=== PATIENT | male | born 1945 | race African-American/Black ===

== ENCOUNTER 2017-04-07 03:51 | Inpatient (IN) | payer MEDICARE, MEDICAID ==
[2017-04-07] VITALS (8 sets, daily range): BP systolic 111–137; BP diastolic 55–78
[~2017-04-07] VITALS: Ht 165.1 cm; Wt 54.4 kg
[~2017-04-07 03:51] MED LIST: ACETAMINOPHEN500 M3 PO; ACETAMINOPHEN500 MG PO; ADVAIR 250/5028 PUFF IN; ALBUTEROL2.5 MG/NEB INH; ARICEPT10 MG PO; ARICEPT23 MG PO; ASPIR-LOW81 MG PO; ATIVAN GENERIC0.5 MG PO; CELEBREX200 MG PO; CELEXA20 MG PO; DEPAKOTE 250MG250 MG PO; DEPAKOTE250 MG PO; DILTIAZEM HCL120 M1 PO; DONEPEZIL 10MG10 MG PO; DYAZIDE CAP (M1 EACH PO; LEVAQUIN 750 M750 MG PO; LISINOPRIL20 MG PO; LOVAZA1 GM PO; MAXZIDE 25 MG-31 TA1 PO; MAXZIDE 25 MG-31 TAB PO; METFORMIN 500M500 MG PO; MIRALAX17 GM/DOSE PO; NAMENDA10 MG PO; NUEDEXTA1 CAP PO; OXYBUTYNIN5 MG PO; PREDNICOT20 MG PO; PRILOSEC20 MG PO; PROAIR HFA0.09 MG/AC IH; RANITIDINE HCL150 MG PO; RANITIDINE150 M1 PO; RISPERIDONE0.5 MG PO; ROBAFEN DM 10120 ML PO; SENNA LAXATIVE8.6 MG PO; SENOKOT TABLET1 EACH PO; SEROQUEL100 MG PO; SERTRALINE 100100 MG PO; SIMVASTATIN40 MG PO; TAMSULOSIN HYD0.4 M1 PO; TAMSULOSIN HYD0.4 MG PO; THE MEDICINE S500 M1 PO; THEO-24200 MG PO; THEO-TIME300 MG PO; THEOPHYLLINE E100 MG PO; TRAVATAN 2.5 M2.5 ML OT; TRAVATAN Z 2.52.5 ML OP; TRICOR 145 MG145 MG PO; TYLENOL ES500 M1 PO; VENTOLIN H0.09 MG/AC IH; VESICARE5 MG PO; VISTARIL25 M1 PO; ZOCOR40 MG PO; ZOLOFT100 MG PO
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
[2017-04-07 04:32] LABS: ARTERIAL PO2 69.6 MMHG (80-100); ARTERIAL TCO2 33.1 MMOL/L (23-27)
[2017-04-07 04:33] LABS: ALLEN'S TEST PATIENT UNABLE; OXYGEN 100%
[2017-04-07 04:57] LABS: URINE BILIRUBIN - DIPSTICK NEGATIVE (NEG); URINE BLOOD 1+ (NEG)
[2017-04-07 05:19] LABS: BUN 50 mg/dL (7-18)
[2017-04-07] MEDS ORDERED: REMERON15 MG PO (05:22)
[2017-04-07] MEDS ORDERED: DEPAKOTE 125MG125 MG PO (05:24)
[2017-04-07 05:26] LABS: HEMOGLOBIN 9.2 g/dL (14.1-18.0); LYMPH # 1.3 K/mm3 (0.7-4.5); LYMPH % 6.7 % (10-50)
[2017-04-07] MEDS ORDERED: PROAIR HFA0.09 MG/AC IH (05:27)
[2017-04-07] MEDS ORDERED: ULTRAM50 MG PO (05:27)
[2017-04-07 05:28] LABS: NEUTROPHILS 79 % (42-76)
[2017-04-07] MEDS ORDERED: VITAMIN C500 M1 PO (05:28)
[2017-04-07] MEDS ORDERED: ZINC SULFATE 2220 MG PO (05:28)
[2017-04-07] MEDS ORDERED: BISOPROLOL 5MG T5 MG PO ×2 (05:29→08:16)
[2017-04-07] MEDS ORDERED: CONSTULOSE10 GM/15 M PO (05:30)
[2017-04-07 05:32] LABS: GFR (ESTIMATED) 43 ML/MIN (>60)
[2017-04-07] MEDS ORDERED: VOLTAREN100 GM TP (08:20)
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
--- NOTE | 2017-04-07 09:27 | RADIOLOGY REPORT PS360 ---
CHEST-PORTABLE COMPARISON: Portable upright chest 03/16/2017 HISTORY: Shortness of breath TECHNIQUE: Portable spine chest FINDINGS: The lung villegas are fairly well-expanded however there is patient and/or respiratory motion somewhat blurring detail. There is no obvious pneumonic infiltrate. Cardiac size and vascularity are normal for supine position. There is no definite pleural fluid. IMPRESSION: Posterior negative portable spine chest
--- NOTE | 2017-04-07 09:30 | PHARMACY CLINIC NOTE ---
Patient Demographics Patient Demographics Admission date: 04/07/17 Date: 04/07/17 Time: 0929 Allergies Coded Allergies: tuberculin,PPD,multi-puncture (Mild, 02/20/16) HEIGHT- FT: 5 IN: 5.00 K.432 VTE General Information Labs: Laboratory Tests 04/07 0430 Hematology Hgb (14.1 - 18.0 g/dL) 9.2 L Hct (42.0 - 52.0 %) 34.3 L Plt Count (142 - 424 K/mm3) 543 H Disclaimer The following section includes nursing documentation that has been pulled in for pharmacy review. Patient's VTE score: 2 Patient's VTE Risk: VERY LOW RISK Clinical trial participant? No VTE prophylaxis [id number] VTE prophylaxis ordered? Yes Type of prophylaxis/treatment: CARLOS at 0929
--- NOTE | 2017-04-07 10:26 | Procedure Note ---
Bedside procedures Central Line Date of procedure: 04/07/17 Time of procedure: 1024 Central Line Placement: Risks/benefits discussed with pt/guardian? No (UNABLE.[place] OF STATE.) Anesthesia Lidocaine 1% ml- CL Placement [place], Rt Internal jugular, Prepped and draped, Triple lumen, good venous return, confirmed with xray (CXR PENDING), sutured, Sterile Dressing Applied. at 1021
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
--- NOTE | 2017-04-07 12:25 | RADIOLOGY REPORT PS360 ---
CHEST-PORTABLE COMPARISON: Portable spine chest 04/07/2017 HISTORY: Central line placement TECHNIQUE: Portable semiupright chest FINDINGS: Is a central line seen entering the right jugular vein near the junction with the subclavian vein and the tip is in the SVC above the right atrium. There are subtle ill-defined opacities in the left infrahilar region and left lower lobe likely representing a pneumonic infiltrate. There is a small left pleural effusion likely reactive. The left upper lung field right lung field are clear. IMPRESSION: 1. Satisfactory placement of central line, there is no pneumothorax 2. Probable left lower lobe bronchial pneumonia with small reactive pleural effusion
[2017-04-08 03:57] VITALS: BP 131/77
[2017-04-08 06:15] LABS: HEMOGLOBIN 8.9 g/dL (14.1-18.0); LYMPH % 6.4 % (10-50)
[2017-04-08 06:52] LABS: NEUTROPHILS 77 % (42-76)
[2017-04-08 08:01] VITALS: BP 131/67
[2017-04-08 08:47] VITALS: BP 131/67
--- NOTE | 2017-04-08 08:53 | ACUTE CARE PROGRESS NOTE (QUA) ---
See Addendum Progress Notes Subjective Date 04/08/17 Time 0852 Note He had an uneventful night. Blood sugars have improved. He has become more alert but remaines confused and incoherent. Nursing staff has noted that he is not safe with oral intake therefore have held his oral medications. Objective Findings Laboratory Tests 04/08/17 0635: POC Glucose 147 H 04/08/17 0605: Sodium 159 *H, Potassium 4.0, Chloride 123 H, Carbon Dioxide 29, BUN 43 H, Creatinine 1.0, Estimated Creat Clear 51, Estimated GFR (MDRD) 73, Glucose 161 H, Calcium 8.4 L, WBC 16.4 H, RBC 3.39 L, Hgb 8.9 L, Hct 31.5 L, MCV 92.9, RDW 14.4, Plt Count 425 H, MPV 6.6 L, Gran % 90.3 H, Gran # 14.8 H, Total Counted 100, Lymphocytes % 6.4 L, Monocytes % 2.6, Eosinophils % 0.5, Basophils % 0.2, Neutrophils 77 H, Band Neutrophils 12 H, Lymphocytes (Manual) 10, Lymphocytes # 1.0, Monocytes (Manual) 1 L, Monocytes # 0.4, Eosinophils # 0.1, Basophils # 0.0, Platelet Estimate SLIGHT INCREASE, Polychromasia 3+, Hypochromasia 3+, Poikilocytosis SL., Rouleaux 3+, PUBS MCHC 28.1 L, MCH 26.1 L 04/08/17 0501: POC Glucose 137 H 04/07/17 2357: POC Glucose 78 04/07/17 2316: POC Glucose 73 04/07/17 2004: POC Glucose 93 04/07/17 1642: POC Glucose 278 H 04/07/17 1140: Lactic Acid 1.8 04/07/17 1140: Glucose 594 *H Last VS-Temp:98.4 B/P:131/67 Pulse:122 Resp:22 SaO2:95 OXYGEN Last weight lbs:120 oz:0 K.432 Method:Estimated-Unable to Weigh Exam General appearance: more alert and attempts to talk but is confused and does not follow commands. Eyes: anicteric ENT: mucous membranes moist Cardiovascular: regular rate & rhythm Respiratory: bilateral coarse rhonchi, L>R ABD: non-distended, soft, no apparent tenderness Genitourinary: catheter in place Extremities: no pedal edema Skin: multiple pressure sores Neuro: alert and a bit fidgety. Tries to talk but speech is incoherent Assessment/Plan Problem List 1. Pneumonia Status: Acute 2. UTI (urinary tract infection) Status: Acute 3. Sepsis 4. Hyperglycemia Status: Acute 5. Dysphagia 6. 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 Decubitus skin ulcer 9. Dementia 10. Bipolar 1 disorder 11. Schizophrenia 12. Acute on chronic renal failure Plan: More alert but confused and incoherent and now noted with dysphagia to liquids and oral meds. Will get speech eval. Etiology of his hypernatremia is not clear as his renal function has improved after hydration. (Note that all patients on my census today had elevated sodium levels, ? lab error) Will change IVF to 1/4NS and repeat labs in AM. This inpt stay is expected to cross 2 MNs from start of care Yes at 3557
[2017-04-08 16:21] VITALS: BP 126/57
[2017-04-08 19:52] VITALS: BP 151/65
[2017-04-08 21:35] VITALS: BP 151/65
[2017-04-09 03:51] VITALS: BP 110/84
[2017-04-09 07:00] LABS: HEMOGLOBIN 8.2 g/dL (14.1-18.0); LYMPH # 1.9 K/mm3 (0.7-4.5)
[2017-04-09 08:00] VITALS: BP 127/62
[2017-04-09 08:10] LABS: NEUTROPHILS 92 % (42-76)
--- NOTE | 2017-04-09 08:28 | ACUTE CARE PROGRESS NOTE (QUA) ---
Progress Notes Subjective Date 04/09/17 Time 0754 Note Per nursing: patient does not swallow food; the food rolls out of his mouth. He is on a nonrebreather. Patient is total care; patient is a sultana of the [facility] and is a full code. Sodium remains elevated at 161 and K+ low at 3.4; WBC more elevated at 23.5 with HGB 8.2 Patient answers yes and no; says no to CP and SOB Objective Findings Laboratory Tests 04/09/17 0637: POC Glucose 211 H 04/09/17 0630: Sodium 161 *H, Potassium 3.4 L, Chloride 121 H, Carbon Dioxide 36 H, BUN 41 H, Creatinine 0.9, Estimated Creat Clear 56, Estimated GFR (MDRD) 83, Glucose 229 H, Calcium 9.3, WBC 23.5 *H, RBC 3.19 L, Hgb 8.2 L, Hct 30.9 L, MCV 97.1 , RDW 14.5, Plt Count 470 H, MPV 6.6 L, Gran % 88.7 H, Gran # 20.8 H, Lymphocytes % 8.0 L, Monocytes % 3.1, Eosinophils % 0.0 L, Basophils % 0.2, Lymphocytes # 1.9, Monocytes # 0.7, Eosinophils # 0.0, Basophils # 0.1, PUBS MCHC 26.6 L, MCH 25.8 L 04/08/171956: POC Glucose 167 H 04/08/17 1712: POC Glucose 246 H 04/08/17 1125: POC Glucose 223 H Vital Signs Date Time Temp Pulse Resp B/P Pulse O2 O2 Flow FiO2 Ox Delivery Rate 04/09 0625 04/09 0553 04/09 0510 04/09 0351 04/09 0351 97.7 110 24 110/84 91 OXYGEN 04/09 0305 04/09 0147 04/09 0137 04/08 2352 04/08 2319 91 OXYGEN 04/08 23004/08 4 04/08 2135 97.9 99 26 151/65 94 4 04/08 97.9 99 26 151/65 97 OXYGEN 04/08 1936 15 04/08 1825 15 04/08 1721 04/08 1621 04/08 1621 98.6 108 22 126/57 90 OXYGEN 12 04/08 1516 12 04/08 1505 12 04/08 1505 15 04/08 1505 97 OXYGEN 15 04/08 1410 15 04/08 1348 15 04/08 1149 15 04/08 1136 15 04/08 0946 15 04/08 0847 15 04/08 0847 98.4 122 22 131/67 95 15 04/08 0801 98.4 122 22 131/67 95 OXYGEN 15 04/08 0800 15 Current Medications Insulin Human [rDNA origin] 0 .STK-MED ONE SC (DC) Insulin Human [rDNA origin] 0 .STK-MED ONE SC (DC) Dextrose/Sodium Chloride 1,000 ML .STK-MED ONE IV (DC) Dextrose/Sodium Chloride 1,000 ML .[id number] IV Levofloxacin/Dextrose 50 ML Q48H IV Piperacillin Sod/Tazobactam Sod 3.375 GM Q6 IV (r) Sodium Chloride 50 ML Divalproex Sodium 500 MG QAM PO Tamsulosin HCl 0.4 MG DAILY PO Diagnostic Test (Pha) 1 EACH W/MEALS&HS FS Insulin Human [rDNA origin] SEE ADMIN CRITERIA FOR HI INTENSITY SS W/MEALS&HS SC Acetaminophen 650 MG Q4HP PRN PO Ondansetron HCl 4 MG Q6HP PRN IV Sodium Chloride 1,000 ML .[id number] IV (DC) 04/08 1500 04/08 2300 04/09 0700 Intake Total 1199 737 Output Total 350 275 500 Balance -350 924 237 Intake, IV 1199 737 Output, Stool Output, Urine 350 275 500 Last VS-Temp:97.7 B/P:110/84 Pulse:110 Resp:24 SaO2:91 OXYGEN Last weight lbs:120 oz:0 K.432 Method:Estimated-Unable to Weigh Exam General appearance: alert, eyes are open and on nonrebreather; answers questions Cardiovascular: regular rate & rhythm Respiratory: bilateral rhonchi; poor inspiratory effort ABD: non-distended, soft, bowel sounds present Extremities: no peripheral edema Assessment/Plan Problem List 1. Pneumonia Status: Acute 2. UTI (urinary tract infection) Status: Acute 3. Sepsis 4. Hyperglycemia Status: Acute 5. Dysphagia 6. 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 Decubitus skin ulcer 9. Dementia 10. Bipolar 1 disorder 11. Schizophrenia 12. Acute on chronic renal failure Patient condition critical Plan: CXR; discussed with Care Management with reference for social service consult patient is a sultana of the [facility] and is a full code; with his current respiratory status he will need aggressive Tx for pulmonary hygiene and alternate nutrition , will discuss with Dr. Kline, will change IVF to D5W and give runs of K+ This inpt stay is expected to cross 2 MNs from start of care Yes at 0828
[2017-04-09 08:31] VITALS: BP 127/62
--- NOTE | 2017-04-09 12:26 | ST BEDSIDE DYSPHAGIA EVAL ---
SUBJECTIVE-DYSPHAGIA Date: 04/09/17 Time: 714 Eval Type: Initial Certification - Admitted Date: 04/07/17 Primary Diagnosis: UTI Reason for Consult: DYSPHAGIA Pt/Caregiver Concerns: COUGHING WHILE DRINKING/MEDICINE Onset of symptoms- MEDICAL HX UNKNOWN Symptoms have worsened? YES improved? NO resolved? NO since onset. Current Diet: NPO Allergies Coded Allergies: tuberculin,PPD,multi-puncture (Mild, 02/20/16) Home Medications Active Scripts DILTIAZEM HCL (Diltiazem ER) 120 MG PO DAILY #30 CAP Ref 2 Prov: 02/21/16 Aspirin (Aspir-Low) 81 MG PO DAILY #30 TAB Ref 1 Prov: 02/21/16 Reported Medications Divalproex Sodium (Depakote) 750 MG PO QHS Senna Pod (Senna Laxative) 1 TAB PO MoWeFr PRN CONSTIPATION Sertraline Hydrochloride (Sertraline 100MG) 100 MG PO QHS Travoprost (Travatan Z 2.5 Ml) 1 DROP OP QHS TRIAMTERENE/HYDROCHLOROTHIAZID (Maxzide 37.5 MG-25 MG Tablet) 0.5 TAB PO DAILY Acetaminophen (Pain Reliever) 1,000 MG PO BID BISOPROLOL FUMARATE (Bisoprolol 5MG) 5 MG PO DAILY Diclofenac Sodium (Voltaren) 2 GM TP TID FLUTICASONE/SALMETEROL (Advair 250-50 Diskus) 1 PUFF IN BID TAMSULOSIN HCL (Tamsulosin 0.4MG) 0.4 MG PO DAILY Mirtazapine (Remeron) 30 MG PO QHS Divalproex Sodium (Depakote Sprinkle) 500 MG PO QAM Tramadol Hcl (Ultram 50MG) 100 MG PO QID Albuterol Sulfate (Proair Hfa) 2 PUFF IH QID Zinc Sulfate (Zinc Sulfate 220MG) 220 MG PO DAILY Ascorbic Acid (Vitamin C) 500 MG PO DAILY Lactulose (Constulose) 10 GM PO Q24H Is this assessment r/t stroke? No OBJECTIVE COMMUNICATION/COGNITION Barriers to communication/cog? Yes Orientation POS: Name. NEG: Place, Day, Date, Year, Other. Follows Commands POS: Follows 1-step commands. NEG: Follows 2-step commands. Able to remember swallow strategies? No Intelligibility Poor Barriers to communication: DECREASED INTELLIGIBILITY, DECREASED ORIENTATION, APHONIC VOICING ORAL-MOTOR STRUCTURE/FUNCTION Facial Asymmetry COULD NOT ASSESS Laryngeal Function Could not check: Voluntary Cough, Throat Clearing. Vocal Quality Aphonic Dentition Edentulous Comments COULD NOT ASSESS STRUCTURE/FUNCTION RO LARYNGEAL FUNCTION DUE TO INABILITY TO FOLLOW DIRECTION RESPIRATORY STATUS/HISTORY Is resp status/hx a concern? Yes Requires Oxygen: Face Mask Breathes from mouth? Yes Risk-fatigue due to comp.resp? Yes DYSPHAGIA SIGNS W/CONSISTENCY Any S/S of Dysphagia? Yes Anterior Loss- Thin, Honey Unable to Form Bolus- Thin, Honey Pocketing Food R/L Sulcus- Thin, Honey ASSESSMENT/PLAN ASSESSMENT Impression Mr. Higgins, a 71 year old male, was referred for a bedside evaluation of swallowing by his physician, Dr. Mcgovern. Mr. Higgins is on a pureed diet with thin liquids at [facility] but has been NPO due to difficulty drinking and taking his medication. Mr. Higgins is on oxygen via facemask and breathes with his mouth open. Mr. Higgins was given the following consistencies: thins via straw, thins via spoon, and honey via spoon. Mr. Higgins was unable to obtain lip closure around straw and spoon and exhibited anterior loss with all consistencies. It is recommended that he remain NPO and obtain nutrition via NG tube. Water trials will be administered by LOSS PREVENTION GUARD to encourage labial closure. Mr. Higgins will be seen 1-2 times per day for LOS. Oral care is recommended. PLAN SHORT TERM GOALS Anterior Loss/jaw closure - Patient will improve jaw closure to reduce anterior loss to keep food/liquid in the mouth while eating. Treatment Objectives: Patient will eliminate loss of food/liquid out the front of mouth when clinician provides jaw support on 3 of 3 trials, (c) Patient will take only thin liquids with/without cues on 3 of 3 trials. (d) Bolus Propulsion/oral sensation- Patients oral sensation will increase to improve the ability to move a bolus to the back of the mouth in a coordinated fashion to reduce the risk of it falling into the airway. Treatment Objectives: Awareness of bolus will be increased through downward pressure of the spoon on the tongue on 3 of 3 trials, (c) Patient will move lemon swab placed between tongue and hard palate from front to back on 3 of 3 trials, (f) Anticipate reaching in # wks 1 FORMULATOR COMPOUNDER GOALS Patient will maintain nutrition/hydration via alternative means. Patient's quality of life will be enhanced through eating and drinking small amounts of food and liquid. Anticipate reaching in # wks 1 RECOMMENDATIONS Diet: NPO Speech Therapy indicated Yes SWALLOW GUIDELINES High Aspiration Risk PATIENT/CAREGIVER EDUCATION Able-recall/restate what told? No RN educated on NPO, Oral Care PLAN See Daily/Progress Note for Initial HEP and Patient Care Instructions Patient will be seen 1-2 x per day during the hospital length of stay. Patient/Guardian verbally acknowledges understanding of treatment program and consents to further treatment: yes Patient/Guardian verbally acknowledges understanding of diagnosis, prognosis, and goals for treatment: yes PHYSICIAN CERTIFICATION: I certify that the above Speech Therapy services are required, authorized, and reviewed every 30 days. Rehab Medicare G Code Plan Medicare/G Code eligible? Yes Therapy Discipline Plan: LOSS PREVENTION GUARD PLAN OF CARE G Code Current Status: SWALLOWING (G8996) Current Status Modifier: 100 PERCENT IMPAIRED (CN) G Code Goal Status: SWALLOWING (G8997) Goal Status Modifier: 80%-99% IMPAIRED (CM) If pt's [facility] benefits exhausted If patient's Medicare benefits are exhausted, please review: #Min Spent: 15 at 0270
--- NOTE | 2017-04-09 12:26 | ST BEDSIDE DYSPHAGIA EVAL ---
SUBJECTIVE-DYSPHAGIA Date: 04/09/17 Time: 714 Eval Type: Initial Certification - Admitted Date: 04/07/17 Primary Diagnosis: UTI Reason for Consult: DYSPHAGIA Pt/Caregiver Concerns: COUGHING WHILE DRINKING/MEDICINE Onset of symptoms- MEDICAL HX UNKNOWN Symptoms have worsened? YES improved? NO resolved? NO since onset. Current Diet: NPO Allergies Coded Allergies: tuberculin,PPD,multi-puncture (Mild, 02/20/16) Home Medications Active Scripts DILTIAZEM HCL (Diltiazem ER) 120 MG PO DAILY #30 CAP Ref 2 Prov: 02/21/16 Aspirin (Aspir-Low) 81 MG PO DAILY #30 TAB Ref 1 Prov: 02/21/16 Reported Medications Divalproex Sodium (Depakote) 750 MG PO QHS Senna Pod (Senna Laxative) 1 TAB PO MoWeFr PRN CONSTIPATION Sertraline Hydrochloride (Sertraline 100MG) 100 MG PO QHS Travoprost (Travatan Z 2.5 Ml) 1 DROP OP QHS TRIAMTERENE/HYDROCHLOROTHIAZID (Maxzide 37.5 MG-25 MG Tablet) 0.5 TAB PO DAILY Acetaminophen (Pain Reliever) 1,000 MG PO BID BISOPROLOL FUMARATE (Bisoprolol 5MG) 5 MG PO DAILY Diclofenac Sodium (Voltaren) 2 GM TP TID FLUTICASONE/SALMETEROL (Advair 250-50 Diskus) 1 PUFF IN BID TAMSULOSIN HCL (Tamsulosin 0.4MG) 0.4 MG PO DAILY Mirtazapine (Remeron) 30 MG PO QHS Divalproex Sodium (Depakote Sprinkle) 500 MG PO QAM Tramadol Hcl (Ultram 50MG) 100 MG PO QID Albuterol Sulfate (Proair Hfa) 2 PUFF IH QID Zinc Sulfate (Zinc Sulfate 220MG) 220 MG PO DAILY Ascorbic Acid (Vitamin C) 500 MG PO DAILY Lactulose (Constulose) 10 GM PO Q24H Is this assessment r/t stroke? No OBJECTIVE COMMUNICATION/COGNITION Barriers to communication/cog? Yes Orientation POS: Name. NEG: Place, Day, Date, Year, Other. Follows Commands POS: Follows 1-step commands. NEG: Follows 2-step commands. Able to remember swallow strategies? No Intelligibility Poor Barriers to communication: DECREASED INTELLIGIBILITY, DECREASED ORIENTATION, APHONIC VOICING ORAL-MOTOR STRUCTURE/FUNCTION Facial Asymmetry COULD NOT ASSESS Laryngeal Function Could not check: Voluntary Cough, Throat Clearing. Vocal Quality Aphonic Dentition Edentulous Comments COULD NOT ASSESS STRUCTURE/FUNCTION RO LARYNGEAL FUNCTION DUE TO INABILITY TO FOLLOW DIRECTION RESPIRATORY STATUS/HISTORY Is resp status/hx a concern? Yes Requires Oxygen: Face Mask Breathes from mouth? Yes Risk-fatigue due to comp.resp? Yes DYSPHAGIA SIGNS W/CONSISTENCY Any S/S of Dysphagia? Yes Anterior Loss- Thin, Honey Unable to Form Bolus- Thin, Honey Pocketing Food R/L Sulcus- Thin, Honey ASSESSMENT/PLAN ASSESSMENT Impression Mr. Higgins, a 71 year old male, was referred for a bedside evaluation of swallowing by his physician, Dr. Mcgovern. Mr. Higgins is on a pureed diet with thin liquids at [facility] but has been NPO due to difficulty drinking and taking his medication. Mr. Higgins is on oxygen via facemask and breathes with his mouth open. Mr. Higgins was given the following consistencies: thins via straw, thins via spoon, and honey via spoon. Mr. Higgins was unable to obtain lip closure around straw and spoon and exhibited anterior loss with all consistencies. It is recommended that he remain NPO and obtain nutrition via NG tube. Water trials will be administered by BOX FEEDER to encourage labial closure. Mr. Higgins will be seen 1-2 times per day for LOS. Oral care is recommended. PLAN SHORT TERM GOALS Anterior Loss/jaw closure - Patient will improve jaw closure to reduce anterior loss to keep food/liquid in the mouth while eating. Treatment Objectives: Patient will eliminate loss of food/liquid out the front of mouth when clinician provides jaw support on 3 of 3 trials, (c) Patient will take only thin liquids with/without cues on 3 of 3 trials. (d) Bolus Propulsion/oral sensation- Patients oral sensation will increase to improve the ability to move a bolus to the back of the mouth in a coordinated fashion to reduce the risk of it falling into the airway. Treatment Objectives: Awareness of bolus will be increased through downward pressure of the spoon on the tongue on 3 of 3 trials, (c) Patient will move lemon swab placed between tongue and hard palate from front to back on 3 of 3 trials, (f) Anticipate reaching in # wks 1 DIRECTOR OF CATEGORY MANAGEMENT GOALS Patient will maintain nutrition/hydration via alternative means. Patient's quality of life will be enhanced through eating and drinking small amounts of food and liquid. Anticipate reaching in # wks 1 RECOMMENDATIONS Diet: NPO Speech Therapy indicated Yes SWALLOW GUIDELINES High Aspiration Risk PATIENT/CAREGIVER EDUCATION Able-recall/restate what told? No RN educated on NPO, Oral Care PLAN See Daily/Progress Note for Initial HEP and Patient Care Instructions Patient will be seen 1-2 x per day during the hospital length of stay. Patient/Guardian verbally acknowledges understanding of treatment program and consents to further treatment: yes Patient/Guardian verbally acknowledges understanding of diagnosis, prognosis, and goals for treatment: yes PHYSICIAN CERTIFICATION: I certify that the above Speech Therapy services are required, authorized, and reviewed every 30 days. Rehab Medicare G Code Plan Medicare/G Code eligible? Yes Therapy Discipline Plan: BOX FEEDER PLAN OF CARE G Code Current Status: SWALLOWING (G8996) Current Status Modifier: 100 PERCENT IMPAIRED (CN) G Code Goal Status: SWALLOWING (G8997) Goal Status Modifier: 80%-99% IMPAIRED (CM) If pt's [facility] benefits exhausted If patient's Medicare benefits are exhausted, please review: #Min Spent: 15 at 1488
--- NOTE | 2017-04-09 15:04 | ACUTE CARE PROGRESS NOTE (QUA) ---
Progress Notes Subjective Date 04/09/17 Time 1458 Note Patient found by nurse to be pulseless and nonbreathing. Code was NOT indicated at that point. Pronounced at 1445. Objective Exam General appearance: pulseless, nonbreathing Assessment/Plan Problem List 1. Pneumonia Status: Acute 2. UTI (urinary tract infection) Status: Acute 3. Sepsis 4. Hyperglycemia Status: Acute 5. Dysphagia 6. 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 Decubitus skin ulcer 9. Dementia 10. Bipolar 1 disorder 11. Schizophrenia 12. Acute on chronic renal failure Plan: Release body to home. This inpt stay is expected to cross 2 MNs from start of care Yes at 2651
--- NOTE | 2017-04-09 17:31 | RADIOLOGY REPORT PS360 ---
CHEST-PORTABLE Ordering Physician: Carli Mcgovern MD Patient Age: 71 years: Male HISTORY: respiratory distress with elevated WBC'srespiratory distress TECHNIQUE: AP portable upright chest FINDINGS Right lung hyperexpanded, clear. No no new findings Left chest. With Increased density at the left base reflecting. Additional /additionalconsolidation & airspace disease left midlung & left base now obscure left hemidiaphragm and left heart border. Suspect associated left pleural effusion effusion.. The chest is rotated left which may account for slight shift of the cardiomediastinum to the left difficult to exclude element of atelectasis however at the left base particularly given the hyperexpanded appearance of right lung on this study. Follow-up chest film recommended. If patient is progressively more short of breath, relative hypoxic elevated d-dimer or hemoptysis consider CTA to further evaluate chest. The heart appears slightly larger than previous study now with borderline to mild cardiomegaly. The vascularity appears normal on right. But increased upper lobe vessels on left question cephalization Central line enters from right jugular with tip at SVC. IMPRESSION: ------ 1. Significant Progressive airspace disease left midlung & left base since 04/07/2017 . Consolidation left lung & likely left pleural effusion at left base now obscures left hemidiaphragm & cardiac apex.. .Likely pneumonic consolidation and infiltrate here at left midlung/left base Borderline cardiomegaly. 2. Question mild cephalization of the left. However Right lung appears hyperexpanded clear with minimal vascularity pattern
--- NOTE | 2017-04-12 12:19 | DISCHARGE SUMMARY STANDARD ---
Discharge Summary ([facility]2) Date of admission: 04/07/17 Date of discharge: 04/09/17 Problem List: 1. Pneumonia 2. UTI (urinary tract infection) Permanent Comment: D/T Proteus 3. Sepsis 4. Hyperglycemia 5. Dysphagia 6. 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 Decubitus skin ulcer 9. Dementia 10. Bipolar 1 disorder 11. Schizophrenia 12. Acute on chronic renal failure History of present illness: Mr. Higgins is a 71 yo male resident of [place] who was apparenty alert and oriented and within a few hours became nonresponsive. According to the ER note, his respirations were in the 30s, his pulse was tachycardic and weak, and his oxygen sats dropped into the 70s on 3 L nasal cannula. He was placed on a nonrebreather with sats in the 90s at the [facility] and transported to the emergency room. He did have a Galvez catheter and his urine was noted to be thick and cloudy. He was evaluated in the emergency room and found to have a UTI. He was admitted and started on IV antibiotics and IV fluids. He does have a history of chronic obstructive pulmonary disease, diabetes, paroxysmal atrial fibrillation, systolic heart failure, renal insufficiency, neuromuscular dysfunction of the bladder, dementia, schizophrenia, and bipolar disorder. Exam on admission: General appearance: lethargic, Opens eyes but cannot answer questions Eyes: EOM's w/normal ROM, PERRLA ENT: nose normal, pharynx normal, dry mucous membranes Neck: non-tender, no carotid bruit, supple Cardiovascular: regular rate & rhythm Respiratory: rhonchi on left side, diminished breath sounds ABD: non-distended, normal bowel sounds, no rebound, soft, no tenderness, no guarding Extremities: no peripheral edema Musculoskeletal: patient cannot follow commands to due a musculoskeletal exam Skin: normal color Neuro: lethargic, opens eyes but cannot speak Hospital Course: The patient was started on zosyn and levaquin as well as IVF's and a few of his home medications in the ER. He was also started on sliding scale insulin. Cultures were ordered. He met the criteria for sepsis. Dr. Mcgovern felt his condition was very serious. He was a sultana of the [facility] and a Full Code status. Nurses were having problems with IV access and blood draws so Dr. Regan was consulted to place a deep line. Broad spectum antibiotic coverage was ordered pending cultures. His initial CXR showed a probable left lower lobe bronchial pneumonia with a small reactive pleural effusion. He had an uneventful second night. His blood sugars improved. He had become more alert but remained confused and incoherent. Nursing staff had noted that he was not safe with oral intake therefore his oral medications were held and a speech eval was ordered. He was hypernatremic and the etiology of this was not clear as his renal function improved after hydration. His IVF's were changed to 1/4NS and labs were ordered for the next day. Repeat labs showed a sodium that remained elevated at 161 and a K+ low at 3.4. His WBC was even more elevated at 23.5 with a HGB 8.2. A repeat CXR was ordered that showed significant progressive of airspace disease left midlung & left base since 04/07/2017. There was consolidation of the left lung & likely left pleural effusion at left base that obscured the left hemidiaphragm & cardiac apex. There was likely pneumonic consolidation and infiltrate at the left midlung/left base Dr. Mcgovern discussed with Care Management the need for a social service consult because patient was a sultana of the [facility] and a full code. With his respiratory status, he would need aggressive Tx for pulmonary hygiene and alternate nutrition. His urine culture came back positive for proteus. His blood cultures were normal. On 04/09/17, the patient was found by nurses to be pulseless and nonbreathing. A code was NOT indicated at that point. He was pronounced at 1445. Discharge medications: Stop taking the following medications: FLUTICASONE/SALMETEROL (Advair 250-50 Diskus) 1 EACH BLST.W.DEV IN VITRO TWICE A DAY Divalproex Sodium (Depakote) 250 MG TABLET. ORAL AT BEDTIME NIGHTLY Senna Pod (Senna Laxative) 8.6 MG TABLET ORAL MoWeFr as needed for CONSTIPATION Sertraline Hydrochloride (Sertraline 100MG) 100 MG TABLET ORAL AT BEDTIME NIGHTLY TAMSULOSIN HCL (Tamsulosin 0.4MG) 0.4 MG CAP.ER.24H ORAL DAILY Travoprost (Travatan Z 2.5 Ml) 2.5 ML DROPS OPHTHALMIC AT BEDTIME NIGHTLY TRIAMTERENE/HYDROCHLOROTHIAZID (Maxzide 37.5 MG-25 MG Tablet) 1 EACH TABLET ORAL DAILY Acetaminophen (Pain Reliever) 500 MG TABLET ORAL TWICE A DAY DILTIAZEM HCL (Diltiazem ER) 120 MG CAPSULE.ER ORAL DAILY Qty = 30 Aspirin (Aspir-Low) 81 MG TABLET.DR ORAL DAILY Qty = 30 Mirtazapine (Remeron) 15 MG TABLET ORAL AT BEDTIME NIGHTLY Divalproex Sodium (Depakote Sprinkle) 125 MG CAP.SPRINK ORAL EVERY MORNING Tramadol Hcl (Ultram 50MG) 50 MG TABLET ORAL FOUR TIMES A DAY Albuterol Sulfate (Proair Hfa) 8.5 GM HFA.AER.AD INHALATION FOUR TIMES A DAY Zinc Sulfate (Zinc Sulfate 220MG) 220 MG (50 MG ZINC) CAPSULE ORAL DAILY Ascorbic Acid (Vitamin C) 500 MG TABLET ORAL DAILY Lactulose (Constulose) 10 GM/15 ML SOLUTION ORAL EVERY 24 HOURS BISOPROLOL FUMARATE (Bisoprolol 5MG) 5 MG TABLET ORAL DAILY Diclofenac Sodium (Voltaren) 100 GM GEL..GRAM. TOPICAL THREE TIMES A DAY Disposition: The patient was pronounced at 1445 on 04/09/17. at 1218
== END 2017-04-09 15:00 | disposition expired | DRG 194 ==
LOC: ER 03:51 → ICU 05:49 → 2ND 06:23 → ICU 06:23 → 2ND 15:02
PROVIDERS: Emergency Medicine; Family Medicine
DX: J18.9 Pneumonia, unspecified organism (principal); N39.0 Urinary tract infection, site not specified; N17.9 Acute kidney failure, unspecified; L89.329 Pressure ulcer of left buttock, unspecified stage; J90 Pleural effusion, not elsewhere classified; E11.9 Type 2 diabetes mellitus without complications; I50.22 Chronic systolic (congestive) heart failure; I48.0 Paroxysmal atrial fibrillation; I12.9 Hypertensive chronic kidney disease with stage 1 through stage 4 chronic kidney disease, or unspecified chronic kidney disease; N18.9 Chronic kidney disease, unspecified; N31.9 Neuromuscular dysfunction of bladder, unspecified; F20.9 Schizophrenia, unspecified; F31.9 Bipolar disorder, unspecified
CPT/HCPCS: J2543